=== PATIENT | female | born 1975 | race Two or more races ===

== ENCOUNTER 2016-04-26 06:43 | Emergency (ER) | payer OTHER ==
[~2016-04-26] VITALS: Ht 167.6 cm; Wt 65.8 kg
[2016-04-26 07:58] VITALS: BP 127/75
== END 2016-04-26 08:00 | disposition home or self-care (01) ==
LOC: ER 06:46
DX: S00.83XA Contusion of other part of head, initial encounter (principal); S20.02XA Contusion of left breast, initial encounter; F07.81 Postconcussional syndrome; W20.8XXA Other cause of strike by thrown, projected or falling object, initial encounter; Y93.89 Activity, other specified; Y92.89 Other specified places as the place of occurrence of the external cause; Y99.9 Unspecified external cause status
CPT/HCPCS: 70450; 99284; A4606; Z7610

== ENCOUNTER 2016-06-07 14:52 | Emergency (ER) | payer OTHER ==
[~2016-06-07] VITALS: Ht 167.6 cm; Wt 65.8 kg
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
--- NOTE | 2016-06-07 15:25 | NUR ---
DR DUMONT AT BEDSIDE FOR EVAL.
--- NOTE | 2016-06-07 15:49 | NUR ---
Patient discharged to home in stable condition. Written and verbal after care instructions given. Patient verbalizes understanding of instruction.
[2016-06-07 15:50] VITALS: BP 128/76
[2016-06-07] MEDS ORDERED: IBUPROFEN 400 MG TABLET PO ONE (16:00)
== END 2016-06-07 15:54 | disposition home or self-care (01) ==
LOC: ER 14:53
DX: S09.90XA Unspecified injury of head, initial encounter (principal); S00.12XA Contusion of left eyelid and periocular area, initial encounter; S00.03XA Contusion of scalp, initial encounter; W22.8XXA Striking against or struck by other objects, initial encounter; Y93.89 Activity, other specified; Y92.89 Other specified places as the place of occurrence of the external cause; Y99.9 Unspecified external cause status
CPT/HCPCS: 99283; A4606; A6402; Z7610

== ENCOUNTER 2016-06-17 07:09 | Emergency (ER) | payer OTHER ==
[~2016-06-17] VITALS: Ht 167.6 cm; Wt 68.0 kg
== END 2016-06-17 09:02 | disposition home or self-care (01) ==
LOC: ER 07:14
DX: F07.81 Postconcussional syndrome (principal); G44.309 Post-traumatic headache, unspecified, not intractable
CPT/HCPCS: 70450-TC; A4606; Z7610

== ENCOUNTER 2021-10-25 09:42 | Emergency (ER) | payer OTHER ==
[~2021-10-25] VITALS: Ht 170.2 cm; Wt 74.4 kg
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
--- NOTE | 2021-10-25 10:12 | NUR ---
SEEN BY BY DR. ESTRADA
[2021-10-25] MEDS ORDERED: HYDROCODONE/APAP 5/325MG TABLET ONE (10:55)
[2021-10-25] MEDS: HYDROCODONE/APAP 5/325MG TABLET PO ONE (10:58)
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
--- NOTE | 2021-10-25 12:07 | NUR ---
d/c instraction given to pt fully and verblized understood d/c home wuith rx and wound care dressing intact and dry
[2021-10-25 12:12] VITALS: BP 115/65
== END 2021-10-25 12:14 | disposition home or self-care (01) ==
LOC: ER 09:44
DX: S61.211A Laceration without foreign body of left index finger without damage to nail, initial encounter (principal); W27.8XXA Contact with other nonpowered hand tool, initial encounter; Y93.89 Activity, other specified; Y92.89 Other specified places as the place of occurrence of the external cause; Y99.8 Other external cause status
CPT/HCPCS: 99283; A6403